=== PATIENT | male | born 1990 | race Native Hawaiian/Other Pacific Islander ===

== ENCOUNTER 2018-05-08 18:18 | Emergency (ER) | payer OTHER ==
[~2018-05-08] VITALS: Ht 190.5 cm; Wt 98.0 kg
[2018-05-08 21:25] VITALS: BP 1138/88; TEMP 99.1
== END 2018-05-08 21:25 ==
LOC: ED 18:18
PROC: 0HQ1XZZ Repair Face Skin, External Approach (ICD-10-PCS; principal; 2018-05-08)
PROC: 0HQ5XZZ Repair Chest Skin, External Approach (ICD-10-PCS; 2018-05-08)
DX: R51 Headache (principal); S01.112A Laceration without foreign body of left eyelid and periocular area, initial encounter; S21.112A Laceration without foreign body of left front wall of thorax without penetration into thoracic cavity, initial encounter; Y09 Assault by unspecified means; Y92.149 Unspecified place in prison as the place of occurrence of the external cause
CPT/HCPCS: 99283; J7040